=== PATIENT | female | born 1955 | race Caucasian/White ===

== ENCOUNTER 2016-05-24 15:10 | Emergency (ER) | payer BC ==
[2016-05-24 15:37] VITALS: BP 138/68
--- NOTE | 2016-05-24 16:06 | EDM.PDOC ---
[id number],HEADACHE Time Seen by Provider: 05/24/16 15:50 Source of Information: Reports: Patient History Limitations: Reports: No limitations - History of Present Illness INITIAL COMMENTS - FREE TEXT/NARRATIVE: 60-year-old female with chronic rhinitis postnasal drip and cough presents feeling miserable from persistent cough and rhinitis. No fevers or chills. No shortness of breath. Onset: unknown/unsure Severity: mild Associated Symptoms: Reports: cough, other (Marked difficulty sleeping). 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 Denies: Ear pain, Throat pain Respiratory: Reports: Shortness of Breath (Intermittent), Cough GI/Abdominal: Reports: No symptoms Skin: Reports: no symptoms Neurological: Denies: Headache Psychiatric: Reports: No symptoms ED EXAM, GENERAL - Physical Exam Exam: See Below Exam Limited By: No limitations General Appearance: alert, no apparent distress Ears: normal TMs Nose: nasal drainage, clear rhinorrhea, other (Turbinates are swollen and pale) Throat/Mouth: Normal inspection Respiratory/Chest: no respiratory distress, lungs clear, other (Despite her normal lung sounds she had a persistent tight sounding cough) Neurological: alert, oriented Skin Exam: Warm, Dry Course - Vital Signs Last Recorded V/S: Last Vital Signs Temp 97.2 F 05/24/16 15:35 Pulse 68 05/24/16 15:35 Resp 16 05/24/16 15:35 BP 138/68 05/24/16 15:35 Pulse Ox 98 05/24/16 15:35 - Orders/Labs/Meds Orders: Active Orders 24 hr Category Date Time Status RT Aerosol Therapy [RC] ASDIRECTED Care 05/24/16 16:16 Active Meds: Medications Discontinued Medications Generic Name Dose Route Start Last Admin Trade Name Robin PRN Reason Stop Dose Admin Albuterol/Ipratropium 3 ml 05/24/16 16:16 05/24/16 16:37 Duoneb 3.0-0.5 Mg/3 Ml NEB 05/24/16 16:17 3 ml ONETIME ONE Administration - Re-Assessments/Exams Free Text/Narrative Re-Assessment/Exam: 05/25/16 10:47 Patient was given a DuoNeb with some mild decrease in cough but no change in pulmonary exam, still no wheezing. Patient was placed on 60 mg of prednisone for 5 consecutive days, and also offered an albuterol metered-dose inhaler for when necessary cough control. She can continue her Tessalon Perles as needed. She'll recheck with her primary care physician after the steroid treatment. Departure - Departure Time of Disposition: 17:00 Disposition: Home, Self-Care 01 Condition: good Clinical Impression: Persistent cough for 3 weeks or longer Allergic rhinitis Qualifiers: Allergic rhinitis trigger: other Allergic rhinitis seasonality: non-seasonal Qualified Code(s): J30.89 - Other allergic rhinitis Instructions: Bronchospasm, Adult, Nasal Allergies Referrals: Yesenia Rosales PA [Primary Care Provider] - Forms: ED Department Discharge Care Plan Goals: Take 6 pills of prednisone with food for 5 consecutive days. First meal of the day is the best time to take them. Use inhaler 1 to 2 puffs if you feel short of breath and continue using every 3-4 hours if beneficial. Recheck with your primary care after the prednisone treatment. - My Orders Last 24 Hours: My Active Orders 05/24/16 16:16 RT Aerosol Therapy [RC] ASDIRECTED - Assessment/Plan Last 24 Hours: My Active Orders 05/24/16 16:16 RT Aerosol Therapy [RC] ASDIRECTED
[2016-05-24] MEDS ORDERED: Albuterol/Ipratropium 3.0-0.5 MG/3 ML Neb Soln NEB ONE (16:16)
== END 2016-05-24 17:05 | disposition home or self-care (01) ==
LOC: JP.ED 15:10
DX: R05 Cough (principal); E03.9 Hypothyroidism, unspecified; J30.89 Other allergic rhinitis; Z79.899 Other long term (current) drug therapy
CPT/HCPCS: 99284; J7620

== ENCOUNTER 2018-10-15 14:43 | Emergency (ER) | payer BC ==
[2018-10-15 14:55] VITALS: BP 150/55; PULSE 74
--- NOTE | 2018-10-15 15:39 | EDM.PDOC ---
ED HPI GENERAL MEDICAL PROBLEM - General Chief Complaint: Respiratory Problem Stated Complaint: ALLERGIES ACTING UP Time Seen by Provider: 10/15/18 15:20 Source of Information: Reports: Patient, Family History Limitations: Reports: No Limitations - History of Present Illness INITIAL COMMENTS - FREE TEXT/NARRATIVE: 63-year-old female with intense nasal congestion, postnasal drip and cough for the past 4 days. She has a chronic recurring syndrome of allergy flareup, nasal congestion, bronchitis and sinusitis. I have seen her twice for this in the past 4 years. She did have a [facility] consultation, postnasal drip and chronic sinusitis was diagnosed along with a variety of allergies. She has responded well to prednisone in the past. She has a cough but it's nonproductive and does not have shortness of breath. Onset: Gradual (The past 4 days) Associated Symptoms: Reports: Cough. 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 Denies: Fever, Chills HEENT: Reports: Rhinitis, Sinus Problem (Bilateral pressure, discomfort). Denies: Ear Pain Respiratory: Reports: Cough. Denies: Shortness of Breath, Wheezing Cardiovascular: Denies: Chest Pain GI/Abdominal: Denies: Abdominal Pain, Nausea, Vomiting Skin: Reports: No Symptoms Neurological: Denies: Headache ED EXAM, GENERAL - Physical Exam Exam: See Below Exam Limited By: No Limitations General Appearance: Alert, No Apparent Distress Eye Exam: Bilateral Eye: Normal Inspection Nose: Clear Rhinorrhea, Other (Swollen turbinates bilaterally) Head: Sinus Tenderness (Maxillary sinuses bilateral) Respiratory/Chest: No Respiratory Distress, Lungs Clear Neurological: Alert, Oriented Psychiatric: Normal Affect, Normal Mood Skin Exam: Warm, Dry Course - Vital Signs Last Recorded V/S: Last Vital Signs Temp 97.8 F 10/15/18 15:13 Pulse 74 10/15/18 15:13 Resp 16 10/15/18 15:13 BP 150/55 H 10/15/18 15:13 Pulse Ox 97 10/15/18 15:13 - Re-Assessments/Exams Free Text/Narrative Re-Assessment/Exam: 10/15/18 15:37 Patient again will be placed on 60 mg of prednisone daily for 5 consecutive days. Also given some benzonatate Perles for cough suppression and a course of zithromax. Departure - Departure Time of Disposition: 15:49 Disposition: Home, Self-Care 01 Clinical Impression: Allergic rhinitis Qualifiers: Allergic rhinitis trigger: other Allergic rhinitis seasonality: non-seasonal Qualified Code(s): J30.89 - Other allergic rhinitis - Discharge Information Instructions: Cough, Adult, Paia-ce-Vpab Referrals: PCP,None [Primary Care Provider] - Forms: ED Department Discharge Care Plan Goals: Takes 6 pills of prednisone with food all at the same time with her first meal for 5 consecutive days. Zithromax and benzonatate as prescribed. Consider rechecking in 3-4 days if not improving satisfactorily. Consider wearing a mask when exposed to allergens.
== END 2018-10-15 15:49 | disposition home or self-care (01) ==
LOC: JP.ED 14:43
DX: J30.89 Other allergic rhinitis (principal); E03.9 Hypothyroidism, unspecified; Z79.899 Other long term (current) drug therapy
CPT/HCPCS: 99283

== ENCOUNTER 2022-04-21 17:48 | Emergency (ER) | payer MEDICARE, BC ==
[2022-04-21] MEDS ORDERED: Iopamidol 755 Mg/ML 100 ML Bottle IV ONE (19:28)
[2022-04-21] MEDS ORDERED: Sodium Chloride 0.9% 10 ML Syringe FLUSH ONE (19:28)
[2022-04-21] MEDS ORDERED: Sodium Chloride 0.9% 75 ML IV ONE (19:28)
[2022-04-21 20:48] VITALS: BP 131/57; PULSE 57
== END 2022-04-21 22:03 | disposition home or self-care (01) ==
LOC: JP.ED 17:48
DX: R60.0 Localized edema (principal); E03.9 Hypothyroidism, unspecified; Z79.899 Other long term (current) drug therapy
CPT/HCPCS: 75635; 99283; J3490; Q9967

== ENCOUNTER 2022-09-21 05:49 | Day surgery (SDC) | payer MEDICARE, BC ==
[2022-09-21] MEDS ORDERED: Dextrose 5%-Lactated Ringers 1,000 ML IV SCH (06:30)
[2022-09-21] MEDS ORDERED: Ondansetron 4 MG/2 ML SDV ONE (07:17)
[2022-09-21] MEDS ORDERED: Propofol 200 MG/20 ML SDV ONE (07:17)
[2022-09-21] MEDS ORDERED: fentaNYL 50 MCG/ML SDV ONE (07:17)
[2022-09-21] MEDS ORDERED: Midazolam 1 MG/ML 2 ML SDV ONE (07:17)
[2022-09-21 08:59] VITALS: BP 121/48; PULSE 59
== END 2022-09-21 09:05 | disposition home or self-care (01) ==
LOC: JP.SDS 05:49
PROVIDERS: ATTEND Surgery
DX: R13.12 Dysphagia, oropharyngeal phase (principal); K29.70 Gastritis, unspecified, without bleeding; K44.9 Diaphragmatic hernia without obstruction or gangrene; K58.9 Irritable bowel syndrome, unspecified; E03.9 Hypothyroidism, unspecified; E78.00 Pure hypercholesterolemia, unspecified
CPT/HCPCS: 87081; J2250; J2405; J2704; J3010; J7121

== ENCOUNTER 2022-11-07 19:30 | Emergency (ER) | payer MEDICARE, BC | END 2022-11-07 20:44 | disposition left against medical advice (07) | LOC: JP.ED 19:30 | DX: Z53.21 Procedure and treatment not carried out due to patient leaving prior to being seen by health care provider (principal) ==